=== PATIENT | female | born 1990 | race Caucasian/White ===

== ENCOUNTER 2017-10-02 08:35 | Emergency (ER) | payer MEDICAID, SELFPAY | END 2017-10-02 09:38 | disposition home or self-care (01) | PROVIDERS: Emergency Provider Emergency Medicine; Family Provider Family Medicine; Visit Provider Emergency Medicine | DX: J06.9 Acute upper respiratory infection, unspecified (principal); J11.1 Influenza due to unidentified influenza virus with other respiratory manifestations | CPT/HCPCS: 71020; 87275; 87276; 99282 ==

== ENCOUNTER 2017-11-23 09:39 | Emergency (ER) | payer MEDICAID, SELFPAY ==
[2017-11-23 09:41] VITALS: BMI 25.0
[2017-11-23 09:43] VITALS: BP 140/78; PULSE 94; RESP 38; TEMP 36.8; O2SAT 100; BMI 24.8
--- NOTE | 2017-11-23 09:45 | [facility].EDCP ---
ED Disposition Clinical Impression: Atypical chest pain, Acute hyperventilation Disposition: Home, Self-Care Condition on Discharge: Good Instructions: DI for Atypical Chest Pain, DI for Hyperventilation Additional Instructions: Additional instructions for CHEST PAIN: See your physician as soon as possible for further evaluation. Return immediately if worsening chest pain, vomiting, shortness of breath, fever, coughing of blood. Referrals: Connor Thayer [Primary Care Provider] - Forms: Work/School Release - Critical Care Critical Care Time: No Attestation: On , the high probability of a clinically significant, sudden or life threatening deterioration of the following system(s) required my full and direct attention, intervention and personal management. The time I documented below is in addition to time spent performing reported procedures but includes the following listed in this critical care notation. Medical Decision Making Vital Signs: 11/23/17 09:43 Temperature 98.2 F Temperature Source Oral Pulse Rate [Right Brachial] 94 H Respiratory Rate 38 H Blood Pressure [Right Arm] 140/78 Blood Pressure Mean [Right Arm] 98 Blood Pressure Source [Right Arm] Automatic Cuff Blood Pressure Position [Right Arm] Supine 02 Sat by Pulse Oximetry 100 Oxygen Delivery Method Room Air - Lab Data Lab Results 11/23/17 09:40: WBC 4.8, RBC 4.34, Hgb 13.9, Hct 42.2, MCV 97.2, MCH 32.1 H, MCHC 33.0, RDW 12.8, Plt Count 147, MPV 7.9, Neut % (Auto) 53.2, Lymph % (Auto) 38.7, Reynolds % (Auto) 6.7, Eos % (Auto) 1.1, Baso % (Auto) 0.4, Neut # (Auto) 2.5, Lymph # (Auto) 1.8, Reynolds # (Auto) 0.3, Eos # (Auto) 0.1, Baso # (Auto) 0.0 11/23/17 09:40: Sodium 142, Potassium 3.1 L, Chloride 106, Carbon Dioxide 18 L, Anion Gap 21.1 H, BUN 10, Creatinine 0.91, Estimated Creat Clear 89, Estimated GFR 73, Est GFR ( Amer) 88, Glucose 121 H, Calcium 9.2, Total Bilirubin 0.5, AST 48 H, ALT 67, Alkaline Phosphatase 149 H, Total Creatine Kinase 63, CK-MB (CK-2) < 0.5, CK-MB (CK-2) Rel Index 0.8, Troponin I < 0.02, Total Protein 8.1, Albumin 3.8, Globulin 4.3 H, Albumin/Globulin Ratio 0.9 L 11/23/17 09:40: D-Dimer < 100 11/23/17 10:55: Urine Color Yellow, Urine Appearance Clear, Urine pH 7.5, Ur Specific [place] 1.010, Urine Protein Negative, Urine Glucose (UA) Negative, Urine Ketones Negative, Urine Blood 2+, Urine Nitrate Negative, Urine Bilirubin Negative, Urine Urobilinogen 0.2, Ur Leukocyte Esterase 2+ A, Urine RBC Occasional, Urine WBC 10-20, Ur Squamous Epith Cells 10-20, Urine Bacteria 2+, Urine Mucus 1+ 11/23/17 10:55: Urine HCG, Qual Negative 11/23/17 10:55: Urine Opiates Screen Positive H, Ur Barbituates Screen Negative, Ur Phencyclidine Scrn Negative, Ur Amphetamines Screen Negative, U Methamphetamines Scrn Negative, U Benzodiazepines Scrn Negative, Urine Cocaine Screen Negative, U Marijuana (THC) Screen Negative Result diagrams: 11/23/17 09:40 11/23/17 09:40 Orders (Tests/Meds): ED MEDICATIONS Discontinued Medications Generic Name Dose Route Start Last Admin Trade Name Addis PRN Reason Stop Dose Admin Morphine Sulfate 4 mg 11/23/17 09:56 11/23/17 10:01 Morphine 4mg/Ml Syringe IV 11/23/17 09:57 4 mg ONCE ONE Administration Ondansetron HCl 4 mg 11/23/17 09:56 11/23/17 10:01 Zofran 4mg/2ml Vial IV 11/23/17 09:57 4 mg ONCE ONE Administration ORDERS Category Date Time Status Urine Culture Stat Micro 11/23/17 10:55 Received ECG Request by /Nazanin Stat Y 11/23/17 10:47 Ordered - ECG Data Tracing #2 EKG interpreted by Sam Trotter MD: Rhythm: sinus tachycardia Rate: 114 [place]ese: normal Ectopy: none Conduction: normal ST Segment Changes: Diffuse, nonspecific T Wave Changes: none Q Waves: none No evidence of acute ischemia or injury No prior EKGs available for comparison EKG #2 interpreted by Sam Trotter MD: Rhythm: sinus Rate: 66 Deweese: normal Ectopy: none Conduc
--- NOTE | 2017-11-23 09:51 | XR_ITS ---
XR chest portable HISTORY: ITS.REASON: CHEST PAIN ORDERING PHYSICIAN: Sam Trotter MD PATIENT AGE: 27 years COMPARISON: 10/02/2017 FINDINGS: The cardiomediastinal silhouette and pulmonary vascularity are within normal limits. The lungs are clear without infiltrates, suspicious nodules, or pleural effusions. No acute bony abnormalities. IMPRESSION: Negative chest, no acute finding
--- NOTE | 2017-11-23 10:13 | PC.NURSE ---
Lucía from [facility] contacted the ER regarding the patient. She states that while on the phone that patient spoke of suicidal thought. Ana Garcia went in and talked to the patient. She denied any current thought of suicide or self harm. She denies any plan for suicide of self harm. She promises no suicidal or self harming behavior at this time. She states that she is upset and told [facility] staff that she has in the past had suicidal thoughts. This information was relayed back to [facility] and they are continuing to work on a plan for transport to a halfway.
[2017-11-23 10:16] LABS: Hematocrit 42.2 % (37.0-47.0); Hemoglobin 13.9 g/dL (12.2-16.2); Mean Corpuscular Hemoglobin 32.1 pg (27.0-31.2); Mean Corpuscular Volume 97.2 fl (81-99); Red Blood Count 4.34 M/mm3 (4.20-5.40); White Blood Count 4.8 K/mm3 (4.8-10.8)
[2017-11-23 10:17] LABS: Basophils % 0.4 % (0.1-2.0); Eosinophils % 1.1 % (0.1-12.0); Mean Platelet Volume 7.9 fl (7.4-10.4); Monocytes % 6.7 % (1.7-9.3); Neutrophils % 53.2 % (37.0-80.0); Platelet Count 147 K/mm3 (142-424); Red Cell Distribution Width 12.8 % (11.5-17.5)
[2017-11-23 10:18] LABS: Eosinophils # 0.1 K/mm3 (0.0-0.4); Lymphocytes # 1.8 K/mm3 (0.7-4.5); Lymphocytes % 38.7 K/mm3 (10-50); Monocytes # 0.3 K/mm3 (0.1-1.0); Neutrophils # 2.5 K/mm3 (1.8-7.8)
--- NOTE | 2017-11-23 10:20 | PC.NURSE ---
note written at 10:13 by Ana Garcia is in error and not for this patient
[2017-11-23 10:42] LABS: Alanine Aminotransferase 67 U/L (12-78); Albumin Level 3.8 gm/dL (3.4-5.0); Albumin/Globulin Ratio 0.9 (1.1-1.8); Alkaline Phosphatase 149 U/L (46-116); Anion Gap 21.1 mEq/L (5-15); Aspartate Amino Transferase 48 U/L (15-37); Bilirubin,Total 0.5 mg/dL (0.2-1.0); Blood Urea Nitrogen 10 mg/dL (7-18); CKMB Relative Index 0.8 U/L (0-4.0); Calcium 9.2 mg/dL (8.5-10.1); Carbon Dioxide 18 mmol/L (21.0-32.0); Chloride 106 mmol/L (98-107); Creatine Kinase 63 U/L (26-192); Creatine Kinase MB < 0.5 mg/ml (0.0-3.6); Creatinine Clearance Estimated 89 mL/min (0-300); Creatinine,Serum 0.91 mg/dL (0.55-1.02); Estimated Glomerular Filt Rate 73 ml/min (>60); GFR (African American) 88 ML/MIN (>60); Globulin 4.3 gm/dl (1.3-3.2); Glucose 121 mg/dL (74-106); Potassium 3.1 mmoL/L (3.5-5.1); Sodium 142 mmol/L (136-145); Total Protein,Serum 8.1 gm/dL (6.4-8.2); Troponin I < 0.02 ng/ml (0.00-0.06)
[2017-11-23 10:49] LABS: D-Dimer < 100 (0-400)
[2017-11-23 10:58] LABS: Microscopic, Urine URINE MICROSCOPIC (MICROSCOPIC)
[2017-11-23 11:04] LABS: Appearance,Urine CLEAR (Clear); Bilirubin,Urine Negative (Negative); Blood, Urine 2+ (Negative); Color,Urine YELLOW (Yellow); Glucose,Urine (UA) Negative (Negative); Ketones,Urine Negative (Negative); Leukocyte Esterase,Urine 2+ (Negative); Nitrate,Urine Negative (Negative); PH,Urine 7.5 (5.0-8.5); Protein,Urine Negative (Negative); Urobilinogen,Urine 0.2 EU/dl (0.2)
[2017-11-23 11:05] LABS: Urine Pregnancy, HCG Qual. Negative (Negative)
[2017-11-23 11:11] LABS: Amphetamine/Metha Screen,Urine Negative ng/mL (<1000); Barbiturates Screen,Urine Negative ng/mL (<200); Benzodiazepines Screen,Urine Negative ng/mL (200); Cannabinoid Screen,Urine Negative ng/mL (<50); Cocaine Screen,Urine Negative ng/g (<300); Methadone Screen,Urine Negative ng/mL (<300); Opiate Screen,Urine Positive ng/mL (<300); Phencyclidine Screen,Urine Negative ng/mL (<25)
[2017-11-23 11:17] LABS: Bacteria,Urine 2+ /lpf; Mucus,Urine 1+ /lpf; RBC,Urine Occasional #/hpf (0-3)
[2017-11-23 11:56] VITALS: BP 138/72; PULSE 78; RESP 18; TEMP 36.9
== END 2017-11-23 11:57 | disposition home or self-care (01) ==
PROVIDERS: Emergency Provider Emergency Medicine; Family Provider Family Medicine; PCP Family Medicine
DX: R07.89 Other chest pain (principal); R06.4 Hyperventilation
CPT/HCPCS: 71045; 80053; 80305; 81001; 81025; 82550; 82553; 84484; 85025; 85378; 87086; 93005; 93041; 96374; 96375; 99282; J2405

== ENCOUNTER → 2018-07-15 14:27 | Outpatient (CLI) | payer MEDICAID, SELFPAY ==
--- NOTE | 2018-07-15 14:41 | XR_ITS ---
XR hip RT 2-3V w/pelvis HISTORY: ITS.REASON: RT HIP PAIN ORDERING PHYSICIAN: Connor Thayer PATIENT AGE: 27 years COMPARISON: None FINDINGS: No fracture or dislocation is evident. No significant degenerative change. No lytic or blastic change. Unremarkable soft tissues . There are 2 tubal ligation clips on the left IMPRESSION: Negative hip
== END ==
PROVIDERS: PCP Family Medicine; Visit Provider Family Medicine
DX: M25.551 Pain in right hip (principal)
CPT/HCPCS: 73502

== ENCOUNTER → 2019-04-09 13:36 | Outpatient (CLI) | payer MEDICAID, SELFPAY ==
--- NOTE | 2019-04-09 13:37 | US_ITS ---
US transvaginal HISTORY: ITS.REASON: US T/V- SEVERE RLQP ORDERING PHYSICIAN: Trace Roth MD PATIENT AGE: 28 years Comparison: None FINDINGS: Uterus is empty measuring 6.6 x 3.5 x 4.0 cm. Endometrial thickness is 3.0 mm. There is no cul-de-sac fluid. Right ovary shows a few small benign follicles with normal blood flow and measures 3.2 x 2.7 x 2.0 cm. Left ovary also shows a few small follicles with normal blood flow and measures 2.9 x 2.7 x 1.4 cm. Impression: Acute process. Bilateral ovarian follicles.
== END ==
PROVIDERS: PCP Internal Medicine Cardiovascular Disease; Visit Provider Nurse Practitioner Obstetrics & Gynecology
DX: R10.31 Right lower quadrant pain (principal)
CPT/HCPCS: 76830

== ENCOUNTER 2022-03-07 22:44 | Emergency (ER) | payer MEDICAID, SELFPAY ==
[2022-03-07 22:46] VITALS: BP 106/58; PULSE 76; RESP 18; TEMP 36.6; O2SAT 95; BMI 26.8
[2022-03-07 22:53] VITALS: BMI 26.8
--- NOTE | 2022-03-07 22:54 | XR_ITS ---
PROCEDURE INFORMATION: Exam: XR Right Hip Exam date and time: 03/07/2022 10:56 PM Age: 31 years old Clinical indication: Hip pain; Patient HX: States she injured right hip years ago, today felt a pop in right hip with pain. Denies any fall. ; Additional info: Injury TECHNIQUE: Imaging protocol: XR Right hip. Views: 2 or 3 views hip with pelvis when performed. COMPARISON: CR HIPCMRT XR hip RT 2-3V w/pelvis 07/15/2018 2:42 PM FINDINGS: Bones/joints: No acute displaced fracture. No dislocation. Questionable partially imaged lucency in the mid femoral diaphysis noted at the margin of the lateral view. Hip joints are preserved. Mild facet degenerative arthropathy at L5-S1. Minimal degenerative spurring of the SI joints. Soft tissues: Unremarkable. IMPRESSION: 1. No acute finding. 2. Questionable partially visualized indeterminate lucency in the mid femoral diaphysis. Advise dedicated femur radiographs for full characterization.
--- NOTE | 2022-03-07 22:59 | PC.NURSE ---
PT OFFERED MEDICATION FOR PAIN AND REFUSES AT THIS TIME.
--- NOTE | 2022-03-07 23:01 | PC.NURSE ---
Pt gone to RAD
--- NOTE | 2022-03-07 23:12 | HMH.EDLOEX ---
ED Disposition Clinical Impression: Hip pain, right Disposition: Home, Self-Care Condition on Discharge: Good Instructions: DI for Hip Pain Additional Instructions: use meds and see pcp for follow up Prescriptions: predniSONE [Prednisone 20mg Tab] 20 mg PO BID #10 tab Transmission Status: Pending to [facility]/pharmacy #[id number] Referrals: Connor Thayer MD [Primary Care Provider] - - Critical Care Critical Care Time: No Attestation: On 03/07/22, the high probability of a clinically significant, sudden or life threatening deterioration of the following system(s) required my full and direct attention, intervention and personal management. The time I documented below is in addition to time spent performing reported procedures but includes the following listed in this critical care notation. Medical Decision Making - Medical Records Medical records reviewed: Yes: I reviewed the patient's medical records. - Tomas Inquiry Pt receiving controlled substance: No Vital Signs: 03/07/22 22:46 Temperature 97.9 F Temperature Source Oral Pulse Rate [Left Radial] 76 Respiratory Rate 18 Blood Pressure [Right Arm] 106/58 L Blood Pressure Mean [Right Arm] 74 Blood Pressure Source [Right Arm] Automatic Cuff Blood Pressure Position [Right Arm] Sitting 02 Sat by Pulse Oximetry 95 Oxygen Delivery Method Room Air - Lab Data Lab results reviewed: Yes: I reviewed the patient's lab results. - Radiology Data #1 Image(s): Hip, Femur Image Reviewed: Yes I have reviewed radiologist's interpretation Preliminary Findings: Normal/NAD - CT Data CT Scan: Other (hip) Time Received: 00:[address] Reviewed: Yes: I have viewed the radiologist's interpretation Preliminary Findings: No Fracture Seen Medical Decision Narrative: has rt hip pain with dec rom and wt bearing with neg xrays will treat as inflammatory and will need ortho eval and possible mri Lower Extremity Injury HPI - General Chief Complaint: Extremity Injury, Lower Stated Complaint: pain R Hip Time Seen by Provider: 03/07/22 23:12 Mode of Arrival: Wheelchair Source of Information: Patient, Spouse, Medical Record Limitations: No Limitations Description of Symptoms (Recalled from ER Triage Doc. by RN): PT REPORTS THAT SHE WAS GETTING OUT OF SHOWER AND HER RIGHT HIP POPPED AND NOW SHE IS HAVING PAIN. PT DENIES FALL OR INJURY BUT REPORTS SHE DID INJURE THE SAME HIP SEVERAL YEARS AGO. - History of Present Illness HPI Narrative: pain in rt hip with pop with rom tonight - has hx of rt hip pain MD complaint: hip injury Injury: Right: hip Type of Injury: eversion Place: home Severity: moderate Exacerbating factors: movement Associated symptoms: snap/pop sensation, unable to bear weight Other symptoms: none - Related Data Home Medications Medication Instructions Recorded Confirmed metoprolol tartrate 25 mg tablet 25 mg PO BID 04/07/19 03/07/22 pantoprazole 40 mg tablet,delayed 40 mg PO DAILY tab 02/07/22 03/07/22 release Previous Rx's Medication Instructions Recorded predniSONE [Prednisone 20mg 20 mg PO BID #10 tab 03/08/22 Tab] Allergies Allergy/AdvReac Type Severity Reaction Status Date / Time No Known Allergies Allergy Verified 02/07/22 13:40 [facility] History - Hepatitis A Screen Attestation statement:: This patient has been screened for Hepatitis A risk factors. I have reviewed the patient's past medical history: Yes Other Surgeries: Yes: Appendectomy, Cholecystectomy, Tubal Ligation Amputation: No Fractures: No Comment: 2007-Appe. 2007-[place] Teeth. 2013-BTL. 2017-Cholecystecomy. 2017-Dx. Lap, Ressection of Endometriosis. 2019-Heart chip to monitor heart rate and BP - Social History Smoking Status: Never smoker Alcohol Intake: never Substance Use Type: denies use Occupational Status: employed Family Hx:: No significant family history ROS Obtained: Yes All systems reviewed & no additional complaints
--- NOTE | 2022-03-07 23:18 | CT_ITS ---
PROCEDURE INFORMATION: Exam: CT Right Lower Extremity Without Contrast, Hip Exam date and time: 03/07/2022 11:20 PM Age: 31 years old Clinical indication: Pain; Hip; Right TECHNIQUE: Imaging protocol: CT of the Right lower extremity without contrast was performed. Exam focused on the hip. Radiation optimization: All CT scans at this facility use at least one of these dose optimization techniques: automated exposure control; mA and/or kV adjustment per patient size (includes targeted exams where dose is matched to clinical indication); or iterative reconstruction. COMPARISON: CR XR HIP RT 2-3V W/PELVIS 03/07/2022 10:56 PM FINDINGS: Bones/joints: No acute fracture. No significant right hip joint effusion. The finding described in the mid femoral diaphysis on radiographs is partially visualized at the caudal margin of the image volume. At this location, there is mild nonspecific endosteal irregularity, but the medullary space demonstrates normal fat attenuation. The finding is therefore presumed benign and of no clinical significance. Soft tissues: No soft tissue hematoma. No evidence of an acute musculotendinous injury/tear. IMPRESSION: No acute finding.
--- NOTE | 2022-03-07 23:46 | XR_ITS ---
PROCEDURE INFORMATION: Exam: XR Right Femur Exam date and time: 03/07/2022 11:42 PM Age: 31 years old Clinical indication: Pain; Hip and thigh; Right; Additional info: Accident TECHNIQUE: Imaging protocol: XR Right femur. Views: 2 views. COMPARISON: CT HIP RT WO CON 03/07/2022 11:20 PM FINDINGS: Bones/joints: No acute fracture. No measurable pathologic bone lesion. A few chronic growth arrest/resumption lines are visualized within the distal femur, likely accounting for the finding on prior right hip radiographs in conjunction with artifact. Soft tissues: Unremarkable. IMPRESSION: No acute findings. No pathologic right femur lesion.
[2022-03-08 00:44] VITALS: BP 133/74; PULSE 64; RESP 18; TEMP 36.6; O2SAT 97
== END 2022-03-08 00:46 | disposition home or self-care (01) ==
PROVIDERS: Emergency Provider Emergency Medicine; PCP Family Medicine
DX: M25.551 Pain in right hip (principal)
CPT/HCPCS: 73502; 73552; 73700; 99284